=== PATIENT | male | born 1930 | race Caucasian/White ===

== ENCOUNTER 2016-06-23 08:54 | Outpatient (CLI) ==
[2012-11-26 09:38] VITALS: BMI 25.0
== END 2016-06-23 08:55 | disposition home or self-care (01) ==
LOC: AMBL 08:54
PROVIDERS: ATTEND Emergency Medicine
DX: R09.02 Hypoxemia (principal); R06.02 Shortness of breath; J44.9 Chronic obstructive pulmonary disease, unspecified; Z99.81 Dependence on supplemental oxygen